=== PATIENT | male | born 1970 | race Caucasian/White ===

== ENCOUNTER 2019-08-21 10:41 | Emergency (ER) | payer BC ==
[~2019-08-21] VITALS: Ht 172.7 cm; Wt 102.1 kg
[~2019-08-21 10:41] MED LIST: ABILIFY5 MG; LISINOPRIL-HCT1 EACH PO; LISINOPRIL10 MG PO; LORTAB 10 MG-3473 ML PO; METOPROLOL TART25 MG PO; SIMVASTATIN40 MG PO
[2019-08-21] MEDS ORDERED: ASPIRIN81 MG PO (10:53)
[2019-08-21] MEDS ORDERED: NEURONTIN300 MG PO (10:53)
[2019-08-21] MEDS ORDERED: LIPITOR10 MG PO (10:53)
[2019-08-21] MEDS ORDERED: NORVASC5 MG PO (12:32)
--- NOTE | 2019-08-21 19:47 | EKG ---
[facility] [address] [facility] [place], [place] [address] Signed Sinus bradycardia Otherwise normal ECG Confirmed by MANDY SPEARS DO ([id number]) on 08/21/2019 7:47:24 PM Electronically Signed By: MANDY SPEARS DO 08/21/19 1947 PATIENT NAME: SIMIN GLEZ Electrocardiogram DATE OF : 68 PHYSICIAN: MANDY SPEARS DO REPORT #: [id number] REPORT IS CONFIDENTIAL AND NOT TO BE RELEASED WITHOUT AUTHORIZATION
== END 2019-08-21 12:48 | disposition home or self-care (01) ==
LOC: ED 10:41
DX: I10 Essential (primary) hypertension (principal); Z86.73 Personal history of transient ischemic attack (TIA), and cerebral infarction without residual deficits; Z88.8 Allergy status to other drugs, medicaments and biological substances; Z79.899 Other long term (current) drug therapy; Z79.82 Long term (current) use of aspirin
CPT/HCPCS: 71045; 93005; 93010; 99285-25

== ENCOUNTER 2021-08-11 06:16 | Emergency (ER) | payer BC, OTHER ==
[~2021-08-11] VITALS: Ht 172.7 cm; Wt 102.1 kg
[~2021-08-11 06:16] MED LIST changes: +ASPIRIN81 MG PO; +LIPITOR10 MG PO; +NEURONTIN300 MG PO; +NORVASC5 MG PO
[2021-08-11] MEDS ORDERED: METOPROLOL SUCC50 MG PO (06:40)
--- NOTE | 2021-08-13 16:27 | EKG ---
[facility] [address] [facility] [place], [place] [address] Signed Normal sinus rhythm Normal ECG When compared with ECG of 21-AUG-2019 10:45, No significant change was found Confirmed by MANDY SPEARS DO ([id number]) on 08/13/2021 4:27:24 PM Electronically Signed By: MANDY SPEARS DO 08/13/21 1627 PATIENT NAME: AMARISJAIMEMARKJOSEPH DIAZ Electrocardiogram DATE OF : 68 PHYSICIAN: MANDY SPEARS DO REPORT #: [id number] REPORT IS CONFIDENTIAL AND NOT TO BE RELEASED WITHOUT AUTHORIZATION
== END 2021-08-11 11:15 | disposition home or self-care (01) ==
LOC: ED 06:16
DX: R07.9 Chest pain, unspecified (principal); R20.2 Paresthesia of skin; I10 Essential (primary) hypertension; R11.0 Nausea; Z88.8 Allergy status to other drugs, medicaments and biological substances; Z79.899 Other long term (current) drug therapy; Z79.82 Long term (current) use of aspirin
CPT/HCPCS: 70450; 70496; 70498; 70551; 71045; 71275; 74174; 80053; 83735; 84484; 85025; 85379; 93005; 93010; 99285-25; Q9967

== ENCOUNTER 2021-09-06 17:01 | Emergency (ER) | payer BC, OTHER ==
[~2021-09-06] VITALS: Ht 172.7 cm; Wt 102.1 kg
[~2021-09-06 17:01] MED LIST changes: +METOPROLOL SUCC50 MG PO
--- OUTSIDE RECORDS SUMMARY | 2021-09-06 17:08 | XMS ---
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 Andres has no Care Guidelines for this patient. Yoel VISIT COUNT (12 MO.) 2 [facility] [place] TOTAL 2 NOTE: Visits indicate total known visits. ED/C VISIT TRACKING (12 MO.) 09/06/2021 17:[address] [facility] [place] TYPE: Emergency COMPLAINT: - POSS STROKE 08/11/2021 06:16 [facility] [place] TYPE: Emergency COMPLAINT: - CHEST PAIN DIAGNOSES: - alf (current) use of aspirin - Essential (primary) hypertension - Chest pain, unspecified - Paresthesia of skin - Allergy status to other drugs, medicaments and biological substances - Other intermediate school teacher (current) drug therapy - Nausea INPATIENT VISIT TRACKING (12 MO.) No inpatient visits to display in this time frame [email or web address]
--- NOTE | 2021-09-07 18:52 | EKG ---
[facility] [address] [place] [address] Signed Normal sinus rhythm Left axis deviation Abnormal ECG When compared with ECG of 11-AUG-2021 06:21, No significant change was found Confirmed by JAMIE LIU MD ([id number]) on 09/07/2021 6:52:20 PM Electronically Signed By: JAMIE LIU MD 09/07/211851 PATIENT NAME: SIMIN GLEZ Electrocardiogram DATE OF : 68 PHYSICIAN: JAMIE LIU MD REPORT #: [id number] REPORT IS CONFIDENTIAL AND NOT TO BE RELEASED WITHOUT AUTHORIZATION
== END 2021-09-06 21:22 | disposition home or self-care (01) ==
LOC: ED 17:01
DX: U07.1 COVID-19 (principal); E86.0 Dehydration; E87.6 Hypokalemia; I10 Essential (primary) hypertension; Z86.73 Personal history of transient ischemic attack (TIA), and cerebral infarction without residual deficits; Z88.8 Allergy status to other drugs, medicaments and biological substances; Z79.899 Other long term (current) drug therapy; Z79.82 Long term (current) use of aspirin
CPT/HCPCS: 36415; 71045; 80053; 81001; 83605; 83690; 84484; 85025; 93005; 93010; 99284-25; C9803; J3480; J7030; J7040; U0003

== ENCOUNTER 2022-09-22 11:41 | Inpatient (IN) | payer BC, OTHER ==
[~2022-09-22] VITALS: Ht 172.7 cm; Wt 102.1 kg
[~2022-09-22 11:41] MED LIST changes: -NEURONTIN300 MG PO
--- NOTE | 2022-09-22 15:05 | EKG ---
[facility] [address] [place] [address] Signed Normal sinus rhythm Left axis deviation Abnormal ECG When compared with ECG of 06-SEP-2021 18:24, No significant change was found Confirmed by Robert Martinez MD () on 09/22/2022 3:04:52 PM Electronically Signed By: ROBERT MARTINEZ MD 09/22/22 1505 PATIENT NAME: SIMIN GLEZ Electrocardiogram DATE OF : 68 PHYSICIAN: ROBERT MARTINEZ MD REPORT #: [id number] REPORT IS CONFIDENTIAL AND NOT TO BE RELEASED WITHOUT AUTHORIZATION
[2022-09-22] MEDS ORDERED: HYDROCHLOROTHIA25 MG PO (16:52)
[2022-09-22] MEDS ORDERED: AMLODIPINE BESY10 MG PO (16:52)
[2022-09-22] MEDS ORDERED: LISINOPRIL30 MG PO (16:53)
[2022-09-22] MEDS ORDERED: METOPROLOL SUCC25 MG PO (16:53)
--- NOTE | 2022-09-22 18:15 | NUR ---
PATIENT LYING ON BED VISITING WITH FAMILY. VITALS AND I/O'S COMPLETED. CALL LIGHT WITHIN REACH.
--- NOTE | 2022-09-22 19:10 | NUR ---
SHIFT REPORT RECEIVED FROM QUEENIE JOHNSTON.
--- NOTE | 2022-09-22 19:18 | NUR ---
patient arrived to the floor approx 1620. Accompanied by his Khadar. Report received from FORESTRY AID TECHNICIAN. Oriented patient to bed/room/call system and ordered diet. Admission assessment completed. Offered tylenol (see emar) patient denied relief of pain behind right eye describes as stabbing after the tylenol but declined need for any additional pain medicaion. Patient tolerated 90% of dinner without nausea. Pt with a hx of GAMA- will bring in CPAP tonight. Advanced directive brought in by family- scanned in by credit charge authorizerPRESTON Pat. Patient states he would not accept blood products if they were offered due to his spritual preference of [employer]. Report provided to Marlyn JOHNSTON at approx 1915- patients parents are currently at the bedside.
--- NOTE | 2022-09-22 19:30 | NUR ---
PT RESTING IN BED, FAMILY MEMBERS AT BEDSIDE, VISITING, PT AWAKE AND ALERT TO PLACE AND SELF, FOLLOWS COMMANDS FOR PEDAL PUSHES AND COMPUTER PATTERNMAKER, SPEECH CLEAR, TAKING PO WATER WITHOUT SWALLOWING DIFFICULTIES.
--- NOTE | 2022-09-22 19:45 | NUR ---
TO ROOM, OTHER FAMILY MEMBERS GONE FOR THE NIGHT, PT ASSISTED UP TO BR TO VOID WITH 1 PERSON ASSIST, VOIDED YELLOW GRACIELA URINE 500 ML, SLIGHTLY UNSTEADY ON FEET, DENIES DIZZINESS, REMAINS WITH PT IN BR HE VOIDS, ASSISTED BACK TO BED, TELE #7 PLACED ON PT, SCDS PLACED ON PT PER ORDER,
--- NOTE | 2022-09-22 20:45 | NUR ---
TC TO RT TO REQUEST THAT PT'S PERSONAL CPAP MACHINE BE CHECKED.
--- NOTE | 2022-09-22 20:48 | NUR ---
TELE LEADS REPLACED, PRIMARY RN GENE NOW IN ROOM. CALL LIGHT IN REACH.
--- NOTE | 2022-09-22 21:00 | NUR ---
CPAP MACHINE CHECKED BY RT.
--- NOTE | 2022-09-22 22:05 | NUR ---
SL IN RIGHT WRIST WNL, FLUSHES WELL WITH NS, NO SIGNS OF INFILTRATION, WINDOW DRESSING IN PLACE.
--- NOTE | 2022-09-22 22:05 | NUR ---
PT ASLEEP, LAYING ON RIGHT SIDE, CPAP IN PLACE, AWAKEN, ASSESSMENT COMPLETED, VS DONE, I/O DONE, PT WITHOUT REQUEST, TELE ADJUSTED, FRESH WATER GIVEN, PT WITHOUT REQUEST, REMAINS AT BEDSIDE, SUPPORTIVE.
--- NOTE | 2022-09-22 23:35 | NUR ---
PT ASLEEP, LAYING ON LEFT SIDE, RESP EVEN AND REG, CPAP IN PLACE, WIFT AWAKE AND ON COUCH.
--- NOTE | 2022-09-23 01:10 | NUR ---
PT ASLEEP, LAYING ON SIDE, CONTINUES ON CPAP
--- NOTE | 2022-09-23 02:25 | NUR ---
PT HAS A SL IN RIGHT WRIST, DRESSING INTACT, SITE WNL.
--- NOTE | 2022-09-23 06:15 | NUR ---
PT ASLEEP, LAYING ON LEFT SIDE, CHEEKS ORLIN, PT AWAKENS TO NAME AND TOUCH, FOLLOWS COMMANDS, VS DONE, NEURO ASSESSMENT COMPLETED, REMAINS AT BEDSIDE PT STATES PAIN LESS BEHIND RIGHT EYE, SPEECH CLEAR, WITHOUT REQUEST, FRESH WATER GIVEN.
--- NOTE | 2022-09-23 08:14 | NUR ---
PT IN BED RESTING, EYES CLOSED. BREATHING UNLABORED. FAMILY IN ROOM TALKING ON PHONE. CALL LIGHT WITHIN REACH.
--- NOTE | 2022-09-23 09:22 | NUR ---
PATIENT SITTING UP IN BED, FINISHED UP WITH BREAKFAST. NO SWALLOWING ISSUES. UP TO BATHROOM, PATIENT REPORTS UNSTEADY ON FEET, HAVING TO HOLD ONTO MAS. DR. HERRERA IN ROOM ROUNDING. NEW ORDER FOR PAIN CONTROL. PATIENT RATES PAIN BEHIND RIGHT EYE 8/10 ON PAIN SCALE. ADMINISTERED TYELENOL PER OCT PRN. PLAN FOR PT EVALUATION.
--- NOTE | 2022-09-23 10:40 | NUR ---
PATIENT IN BED AFTER MEAL. VITALS AND I/O'S COMPLETED. FAMILY IN ROOM, CALL LIGHT WITHIN REACH.
--- NOTE | 2022-09-23 13:11 | NUR ---
PATIENT HAS MANY FAMILY AND FRIENDS IN ROOM. PATIENT CONVERSING WITH WELL. NO OTHER NEEDS AT THIS TIME. CALL LIGHT WITHIN REACH.
--- NOTE | 2022-09-23 13:59 | NUR ---
PATIENT LYING IN BED, SPOUSE BESIDE PT IN CHAIR. VITALS AND I/O'S COMPLETED. CALL LIGHT WITHIN REACH.
--- NOTE | 2022-09-23 14:16 | NUR ---
PATIENT REPORTING PAIN INCREASE STATING " IT FEELS LIKE SOMEONE IS SHOVING A PENCIL THROUGH MY EYEBALL" PATIENT NEURO ASSESSMENT UNCHANGED. RATES PAIN 10/10 INTERMITTENT. CALL TO HOSPITALIST TO REPORT CHANGE IN PAIN AND SYMPTOMS. NEW ORDER FOR STAT CT SCAN OF HEAD. UPDATED PATIENT ON POC.
--- NOTE | 2022-09-23 14:44 | NUR ---
PATIENT BACK FROM CT. APPEARS STEADY ON FEET WHEN TRANSFERING. PATIENT HAS [place] FAMILY VISITING IN ROOM. AT BEDSIDE. NO OTHER NEEEDS AT THIS TIME. CALL LIGHT WITHIN REACH. THIS NURSE WENT WITH PATIENT TO CT.
[2022-09-23] MEDS ORDERED: NEURONTIN300 MG PO (17:54)
--- NOTE | 2022-09-23 17:56 | NUR ---
medications reconciled using pharmacy records and interview with patient and
[2022-09-23] MEDS ORDERED: CO Q-10100 MG PO (18:03)
[2022-09-23] MEDS ORDERED: APPLE CIDER VI600 MG PO (18:03)
--- NOTE | 2022-09-23 18:09 | NUR ---
PATIENT LYING IN BED. VITALS AND I/O'S COMPLETED. SPOUSE IN ROOM. CALL LIGHT WITHIN REACH.
--- NOTE | 2022-09-23 18:34 | NUR ---
NIH STROKE ASSESSMENT DONE SCORE OF 4. PATIENT ALERT AND ORIENTED WITH SOME REPORTED FDC MEMORY LOSS. PATIENT HAD INCREASED INTERCRANIAL PAIN WITH SHARP PRESSURE AGAINST RIGHT EYE, STATES "HITS ME IN WAVES" CHANGE IN PAIN REPORTED TO HOSPITALIST, STAT CT SCAN DONE. NO ACUTE CHANGES WITH IMAGING. PATIENT WORKED WITH PHYSIAL THERAPY, WALKER ENCOURAGED WITH UNSTEADINESS. PATIENT REQUESTED STRONGER PAIN MEDICATION. NEW ORDER FOR PERCOCET 5/325 PO. HOSPITALIST REPORTED OKAY TO ADMINISTER PRN WITH CURRENT PRN TYLENOL ORDER. PLANS TO HAVE MRI AND ECHO TOMORROW. MRI SCREENING SHEET DONE AND IN CHART.
--- NOTE | 2022-09-23 19:07 | NUR ---
BEDSIDE REPORT RECEIVED FROM NIURKA JOHNSTON, PT AWAKE AND VISITING WITH , PLAN OF CARE FOR TONIGHT DISCUSSED, PT WITHOUT REQUEST AT THIS TIME.
--- NOTE | 2022-09-23 21:05 | NUR ---
SL RIGHT WRIST, FLUSHES WELL WITH NS, DRESSING WINDOW, INTACT, NO SIGNS OF INFILTRATION.
--- NOTE | 2022-09-23 21:05 | NUR ---
PT RESTING IN BED WITH LAYING NEXT TO HER, EYES CLOSED, AWAKENS EASILY, ALERT TO PLACE AND DAY, SPEECH CLEAR AND APPROPRIATE, NEURO CHECKS AND ASSESSMENT DONE, PT AND REQUESTING RN TO CALL MD TO SEE IF ADDITIONAL PAIN MED COULD BE ORDERED, THEY FEEL THAT PAIN MED NOT QUITE COVERING DISCOMFORT IN RIGHT EYE. PLAN TO CALL MD.
--- NOTE | 2022-09-23 21:20 | NUR ---
DR MARTINEZ CALLED AND UPDATED ON PT'S PAIN STATUS AND PT'S DESIRE TO HAVE ADDITIONAL MED TO HELP COVER DISCOMFORT IN RIGHT EYE, MD STATES HE WILL WRITE AN ORDER.
--- NOTE | 2022-09-23 21:35 | NUR ---
PT RESTING, DISCUSSED NEW ORDER FOR ADDITIONAL PAIN MED, PT DESIRES TO TAKE NOW, PT MEDICATED WITH 1 PERCOCET PER ORDER, FOR RIGHT EYE PAIN 02/11.
--- NOTE | 2022-09-23 23:34 | NUR ---
PT ASLEEP, LAYING ON LEFT SIDE, RESP EVEN AND REGULAR
--- NOTE | 2022-09-24 00:45 | NUR ---
PT ASLEEP, RESP REG AND EVEN.
--- NOTE | 2022-09-24 01:50 | NUR ---
PT ASLEEP, AWAKEN PER EARILIER REQUEST, SPEECH MUMBLED AT FIRST BUT CLEARS QUICKLY, REPORTS PAIN 7/10 RIGHT EYE, MEDICATED WITH 2 PEROCET TABLETS PER ORDER. PT DESIRES TO GET UP TO VOID. SCDS REMOVED, GAIT SLOW AND UNSTEADY, RN ASSIST, VOIDED 550 ML YELLOW URINE, BACK TO BED, SCDS REPLACED, PT PREFERS NOT TO WEAR HIS CPAP TONIGHT, FRESH WATER GIVEN.
--- NOTE | 2022-09-24 02:40 | NUR ---
PT ASLEEP, RESP EVEN AND REGULAR, LAYING ON SIDE, ASLEEP ON COUCH.
--- NOTE | 2022-09-24 06:00 | NUR ---
PT AWAKEN, ALERT, VS DONE, NOTED BP ELEVATED 105/108. PLAN TO RECHECK. PT APPROPRIATE, FOLLOWS COMMANDS, CAPACITOR TESTER EQUAL, SPEECH CLEAR. PT C/O PAIN RIGHT EAR AND NEVAREZ 8/10, MEDICATED WITH 2 PERCOCET. CONCERNED THAT PT HASN'T HAD BM IN THREE DAYS, REQUESTING STOOL SOFTENER, PLAN TO PASS ON TO DAY SHIFT TO F/U WITH DOCTOR.
--- NOTE | 2022-09-24 06:00 | NUR ---
SL INTACT RIGHT WRIST, FLUSHES WELL, DRESSING INTACT.
--- NOTE | 2022-09-24 06:15 | NUR ---
PT MEDICATED WITH TORADOL 15MG IV FOR PAIN, IV SITE INTACT, FLUSHES WELL, SITE INTACT.
--- NOTE | 2022-09-24 07:15 | NUR ---
BEDSIDE HANDOFF RERORT RECEIVED FORM LINE RUNNER RN. PT SLEEPING, LEFT UNDISTURBED, SITTING AT BEDSIDE.
--- NOTE | 2022-09-24 08:40 | NUR ---
Spoke with Wilmer and his , Don. This is pts second stoke, but both feel it is much different than his last. He states his entire body feels weak and he has difficulty walking. They live in a 1 story home with 2 steps. He states his teenagers will help him into the home. 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 He also uses a cpap from [employer]. He works for the [employer] and his works at [employer]. Per , walk with PT did not go well yesterday and they returned him to the room due to safety. Per pt his mom and dad live next door and will also be able to assist him. states concern about mother in law helping pt when he is unsteady on his feet. She is concerned they both may get hurt. Discussed if they would be interested in IP rehab at [facility] and both are in agreement. I will discuss with PT and Doc in the 929 meeting.
--- NOTE | 2022-09-24 08:45 | NUR ---
Saw Sury from PT when I left pts room. Discussed if pt would qualify for IP rehab and she states yes.
--- NOTE | 2022-09-24 09:30 | NUR ---
PT RESTING IN BED. PT WITH POOR APPETITE, DID NOT LIKE BREAKFAST, DECLINING ADDITIONAL BREAKFAST TO BE ORDERED. PT ON ROOM AIR, LUNG SOUNDS CLEAR, DENIES SOB. PT STATES PAIN MEDICATION WAS EFFECTIVE IN HEADAHCE PAIN, DECLINING NEED FOR PAIN MEDICATION AT THIS TIME. BOWEL TONES ACTIVE, HAS NOT HAD BM IN 3 DAYS, NIO FOR SENNA/DOCUSATE INITIATED. CMS INTACT, WITHOUT EDEMA, SCDS IN PLACE. DISCUSSED PLAN OF CARE FOR THE DAY, PT DENIES OTHER NEEDS AT THIS TIME. DR. HERRERA ROUNDED ON PT, MRI TO BE COMPLETED TODAY.
--- NOTE | 2022-09-24 10:00 | NUR ---
Discussed this pt in 929 meeting. Per PT and Hospitalist, both feel this would be appropriated. I will call Ana M at [facility] and ask about availability and fax a chart for review.
--- NOTE | 2022-09-24 11:07 | NUR ---
PT FLUSHED AND NAUSEATED WHEN GETTING TO SHOWER WITH LEI SELLER AN OT. WITH EMESIS. PT NOW RESTING IN BED. GIVEN 4 MG IV ZOFRAN. VSS, BP 161/109 (118), HR 68, 95% ON ROOM AIR, RR 20. TELEMETRY REVIEWED. DR. HERRERA UPDATED ON PT CONDITION.
--- NOTE | 2022-09-24 11:09 | NUR ---
OCCUPATIONAL THERAPY AND I WERE GETTING PATIENT READY TO TAKE A SHOWER. WRAPPED HIS IV AND HIS TELE. WHILE I WAS CHANGING PATIENT SHEETS. THE OCCUPATIONAL THERAPY SAID HE WASN'T FEELING WELL AND HE NEEDED TO LAY DOWN. HE SAID HE WAS FEELING HOT. THEN HE THROUGH UP. WHEN HE GOT BACK TO HIS BED I GOT HIM A COLD WASH CLOTH AND PUT IT ON HIS FORHEAD. NURSE DID HIS VITALS. WILL GO BACK IN AND HELP HIM WITH A BED BATH.
--- NOTE | 2022-09-24 11:22 | NUR ---
PT TO MRI.
--- NOTE | 2022-09-24 12:36 | NUR ---
DID PATIENT'S BED BATH. ALSO SHAMPOOED HIS HAIR AND COMBED IT. PUT NEW GOWN AND SOCKS ON. IN ROOM. AND ALSO HE HAS PEOPLE VISITING HIM.
--- NOTE | 2022-09-24 14:10 | NUR ---
PT RESTING IN BED, AT BEDSIDE. PT STATES HEADAHCE IS CONTINUING, JUST RECEIVED PAIN MEDICATION. NO ACUTE CHANGES.
--- NOTE | 2022-09-24 16:39 | NUR ---
PT RESTING IN BED. FAMILY AT BEDSIDE. PT STATES HEADACHE IS IMPROVING. PT DENIES NEEDS AT THIS TIME.
--- NOTE | 2022-09-24 19:15 | NUR ---
BEDSIDE REPORT RECEIVED PER LEILANI RN, PT RESTING IN BED, AT BEDSIDE, PT REQUESTING PAIN MED.
--- NOTE | 2022-09-24 19:20 | NUR ---
PT MEDICATED FOR PAIN PER MOISES VASQUEZ RN FOR RIGHT EYE PAIN AND NEVAREZ, PT GIVEN TORADOL AND PERCOCET PER ORDER.
--- NOTE | 2022-09-24 19:40 | NUR ---
SL PATENT IN RIGHT WRIST, SITE WNL, FLUSHES WELL.
--- NOTE | 2022-09-24 19:40 | NUR ---
PRIMARY RN COMPLETES pt ASSESSMENT. 1PA WITH FWW TO RESTROOM FOR VOID. pt GAIT UNSTEADY, REQUIRING INSTRUCTION FOR DIRECTION OF WALKER, HOLDING ONTO WALKER, NOT REACHING FOR TABLE, WALL. BACK IN BED. CPAP ON.
--- NOTE | 2022-09-24 19:40 | NUR ---
ASSESSMENT COMPLETED, RT IN TO CHECK CPAP, AT BEDSIDE.
--- NOTE | 2022-09-24 20:20 | NUR ---
PT ASLEEP, RESP EVEN AND REG.
--- NOTE | 2022-09-24 22:40 | NUR ---
PT ASLEEP, LAYING ON RIGHT SIDE, RR 24/MIN, CPAP IN PLACE, NOT IN ROOM AT THIS TIME.
--- NOTE | 2022-09-24 23:21 | NUR ---
PT AWAKE AND ALERT, INTO ROOM, PT AWAKE AND DESIRES TO GO TO BR, PT ASSISTED UP PER MAINTENANCE CHIEF AND AMBULATED TO BR WITH WALKER, AT SIDE, PT ALERT, SPEECH CLEAR AND APPROPRIATE, GAIT REMAINS UNSTEADY.
--- NOTE | 2022-09-24 23:30 | NUR ---
ANSWERED CALL LIGHT. 1 SBA TO BATHROOM AND BACK. PATIENT ASSISTED BY HIS . PATIENT USED WALKER. PATIENT IS BACK IN BED. SCD'S ON. ICE WATER FOR PROVIDED. DENIES FURTHER NEEDS AT THIS TIME.
--- NOTE | 2022-09-24 23:48 | NUR ---
ASSISTED pt TO FIND CPAP MASK. CPAP CONNECTED AND ON. pt WAS ABLE TO SIT UP INDEPENDENTLY AND FIND WATER AND DRINK INDEPENDENTLY. STATES THIS IS A BIG IMPROVEMENT. NO ADDITIONAL REQUESTS AT THIS TIME.
--- NOTE | 2022-09-25 00:18 | NUR ---
PT AWAKE, VISITING WITH , DISCUSSED CURRENT PAIN LEVEL AND PT DESIRES PERCOCET FOR RIGHT EYE PAIN AND NEVAREZ, MED PER ORDER, PT WITHOUT OTHER REQUEST, TALKING WITH .
--- NOTE | 2022-09-25 02:19 | NUR ---
pt RESTING IN BED WITH EYES CLOSED. RESPONDS TO VOICE. TELE LEADS REPLACED. pt ASSISTED TO PUT HOME CPAP ON. IN ROOM ON COUCH SLEEPING. CALL LIGHT IS WITHIN REACH.
--- NOTE | 2022-09-25 03:10 | NUR ---
PT ASLEEP, LAYING ON THE HIS SIDE, RESP EVEN AND REG, CPAP ON.
--- NOTE | 2022-09-25 05:23 | NUR ---
PT AWAKE, ALERT, LAB IN FOR AM BLOOD DRAW, PT MEDICATED FOR NEVAREZ AND RIGHT EYE PAIN WITH 2 PERCOCET PER REQUEST, PT ASSISTED UP TO BR TO VOID, NURSE ASSIST WITH PT USING WALKER, PT HAVING DIFFICULTY WITH LIMITED LEFT VISUAL FIELD, GUIDENCE GIVEN TO MANUVER TO BR AND BACK TO BED, PT BACK TO BED, SCDS REPLACED, AT BEDSIDE. PT RESTING.
--- NOTE | 2022-09-25 05:23 | NUR ---
SL INTACT RIGHT WRIST
--- NOTE | 2022-09-25 07:10 | NUR ---
HANDOFF REPORT RECEIVED FROM CENTRAL STERILIZATION TECHNICIAN RN.
--- NOTE | 2022-09-25 08:05 | NUR ---
Updated PT, OT, Progress note, and consult from [place] stroke consult faxed to Ana M at [facility].
--- NOTE | 2022-09-25 08:55 | NUR ---
PT RESTING IN BED. PT WITH PAIN 7/10 TO HEAD AND EYE, GIVEN TORADOL. PT ON ROOM AIR, LUNG SOUNDS CLEAR, DENIES SOB. BOWEL TONES ACTIVE, DENIES NAUSEA, SMALL APPETITE BUT STATES THE FOOD IS NOT APPETIZING. PT WITH LEFT SIDE INATTENTION, REQUIRES CUEING FOR. STRENGTH EQUAL BILATERALLY, WITHOUT EDEMA. DISCUSSED PLAN OF CARE FOR THE DAY. PT DENIES OTHER NEEDS AT THIS THIS TIME.
--- NOTE | 2022-09-25 09:10 | NUR ---
Received a call from Ana M at [facility] she is requesting updated notes and a ST eval. Let her know I have faxed the updated notes this am and I will request orders for ST leighal. She states she will give everything to their Financial Internship to review today. They will have a bed open tomorrow.
--- NOTE | 2022-09-25 09:34 | NUR ---
IN PT ROOM TO COMPLERE IS AND OS. PT DECLINED SHOWER. PT DECLINED RESTROOM NEEDS. NO FURTHER NEEDS AT THIS TIME. CALL LIGHT WITHIN REACH
--- NOTE | 2022-09-25 10:55 | NUR ---
pt completed with pGladistGladis and walking in the ordonez. p.t. called for rn. pt hypertenisve and nauseated. bp 151/100, reassesed 163/108, hr 62. pt complaint of headache about the same as earlier.
--- NOTE | 2022-09-25 11:14 | NUR ---
CALL TO [facility] AND LEFT A NOTE THAT PATIENT NEEDS ST EVALUATION.
--- NOTE | 2022-09-25 12:45 | NUR ---
PT COMPLAINT OF RIGHT ARM DISCOMFORT WITH IV POTASSIUM INFUSION, RATE DECREASED TO 75ML/HR, PT INSTRUCTED TO CALL IF DISCOMFORT CONTINUES.
--- NOTE | 2022-09-25 14:15 | NUR ---
Received call from Ana M sandoval [facility]. She asks I review insurance as the face sheet I sent is not the correct insurance. Reviewed I show Jr and ROCA[employer]. Her face sheet shows [employer]. I faxed her the corrected face sheet, PT note for this afternoon, and the ST note.
--- NOTE | 2022-09-25 15:39 | NUR ---
PT ASSISTED TO BATHROOM, VOIDED. PT GIVEN HYDROCHLOROTHIAZIDE AND GABAPENTIN PER ORDER. PT NOW RESTING IN BED. NO ACUTE CHANGES.
--- NOTE | 2022-09-25 18:29 | NUR ---
PT RESTING IN BED. PT COMPLAINT OF PAIN 8/10 TO FRONT OF HEAD, REUQESTING PAIN MEDICATION. GIVEN PERCOCET 2 TABS AND IV TORADOL. IV POTASSIUM INFUSION CONTINUES. PT DENIES OTHER NEEDS AT THIS TIME.
--- NOTE | 2022-09-25 19:52 | NUR ---
RECEIVED REPORT FROM DAY SHIFT RN. PATIENT IS RESTING IN BED. FAMILY AT THE BEDSIDE. NO NEEDS NOTED. CALL LIGHT IN REACH.
--- NOTE | 2022-09-25 20:50 | NUR ---
IN ROOM WITH PRIMARY RN TO COLLECT VS AND I&O'S, URINAL EMPTIED AND FRESH ICE WATER PROVIDED. PRIMARY RN OTIS REMAINS IN ROOM FOR pt CARES, CALL LIGHT IN REACH AND IN ROOM.
--- NOTE | 2022-09-25 21:00 | NUR ---
PATIENT ASSESMENT COMPLETED. PATIENT HAS LEFT SIDED NEGLECT AND LEFT SIDED VISUAL FIELD DISTORTION WHICH HAS UNCHANGED SINCE ADMIT. VITALS TAKEN AND RECORDED. INTAKE AND OUTPUT RECORDED. PM MEDS GIVEN PER ORDER. PATIENT REPORTS HEADACHE, PRN MED PER ORDER. PATIENTS IV FLUSHED AND SL PER ORDER. PATIENT DENIES ANY FURTHER NEEDS. PATIENT REPORTS NAUSEA HAS SUBSIDED. PRESENT IN THE ROOM.
--- NOTE | 2022-09-25 22:03 | NUR ---
PATIENT REPORTS NAUSEA, PRN NAUSEA MEDICATION REPORTED. PATIENT DENIES ANY FURTHER NEEDS. CALL LIGHT IN REACH. FAMILY PRESENT IN ROOM.
--- NOTE | 2022-09-26 00:15 | NUR ---
PATIENT IS RESTING IN BED WITH EYES CLSOED, RR 19. PATIENT IS WEARING HOME CPAP. CALL LIGHT IN REACH.
--- NOTE | 2022-09-26 02:18 | NUR ---
PATIENT IS RESTING IN BED WITH EYES CLOSED, RR 16. CALL LIGHT IN REACH.
--- NOTE | 2022-09-26 04:09 | NUR ---
PATIENT IS RESTING IN BED WITH EYES CLOSED. PATIENT IS ON TELE #9 AND HR IS 58. CALL LIGHT IN REACH.
--- NOTE | 2022-09-26 04:32 | NUR ---
TELE BATTERY REPLACED, VSS AND I&O'S CHARTED. FRESH WATER PROVIDED. NO ADDITIONAL NEEDS OR CONCERNS VERBALIZED, RESTING QUIETLY ON SOFA. CALL LIGHT IN REACH.
--- NOTE | 2022-09-26 06:18 | NUR ---
PATIENT IS RESTING IN BED. LAB IN ROOM. PATIENT DENIES ANY NEEDS. CALL LIGHT IN REACH.
--- NOTE | 2022-09-26 08:00 | NUR ---
REPORT RECEIVED FROM NIGHT RN AND PT CARE RESUMED. PT IS ALERT AND ORIENTED. ASSESSMENT COMPLETED. LEFT VISUAL DEFICITS NOTED AND COORDINATION DIFFICULTY WHEN PICKING UP OBJECTS. HE C/O 8/10 PAIN FROM HEADACHE AND ADMIN PRN MED. PT. STATES HE HAS ELIMINATION PROBLEMS AT HOME AND HAS A BM EVERY 3-5 DAYS. AT BEDSIDE. DISCUSSED SHOWERING, MEDS AND AMBULATION. LEFT RESTING WITH CALL LIGHT IN REACH.
--- NOTE | 2022-09-26 11:30 | NUR ---
Called and left a message for Ana M at [facility], unable to contact. Asked if they had received auth and what day they could accept this pt.
--- NOTE | 2022-09-26 12:45 | NUR ---
PT. C/O INTERMITTENT HEADACHE THAT IS STABBING SINCE BEING ADMITTED. ADMIN PRN MED. DENIES FURTHER NEEDS. EATING LUNCH AND AT BEDSDE.
--- NOTE | 2022-09-26 14:01 | NUR ---
PT. RESTING WITH EYES CLOSED. AT BEDSIDE.
--- NOTE | 2022-09-26 14:51 | NUR ---
PT. SALINE LOCKED FOR SHOWER
--- NOTE | 2022-09-26 15:00 | NUR ---
Received a call from Ana M at [facility]. She is unable to contact pts insurance. Asks if I can send her copies of insurance cards. Copied cards from and faxed to Ana M. Called and spoke with Ting in admitting and they have also had issues as they were originally given the wrong insurance name by the pt, then they called the railroad and they also gave them the insurance for the employees family. They did finally get through to [employer] and speak with Marco ford. after waiting 3 hrs.
--- NOTE | 2022-09-26 18:59 | NUR ---
PATIENT GIVEN TYLENOL FOR 9/10 HEADACHE.
--- NOTE | 2022-09-26 19:20 | NUR ---
SHIFT REPORT RECEIVED FROM DAYSHIFT RN ANASTASIA AT BEDSIDE, pt RESTING QUIETLY IN BED, ON RA. RR EVEN AND UNLABORED. NO NEEDS OR CONCERNS VERBALIZED, CALL LIGHT IN REACH AND BOARD UPDATED.
--- NOTE | 2022-09-26 22:15 | NUR ---
ASSESSMENT COMPLETE, pt DROWSY BUT AWAKENS TO VOICE. VSS, pt ON RA. pt DENEIS PAIN AND NAUSEA, REPORTS BASELINE NUMBNESS AND TINGLING TO BLE, CHRONIC PER pt. pt RECENTLY MEDICATED WITH EVENING MEDS BY PRESTON LIMON. IV SITE WNL, SALINE LOCKED. pt REPORTS NEED TO VOID, pt UP SBA WITH FWW TO VOID. PRESTON LIMON IN ROOM TO ASSIST pt BACK TO BED.
--- NOTE | 2022-09-26 22:30 | NUR ---
ASSESSMENT COMPLETE pt A/O TO EVERYTHING BUT DATE, ORIENTED EASILY. OUT OF ROOM, BED ALAMR ON FOR SAFETY ASSISTS WITH AMBULATION PRN. pt SBA WITH FWW, VIJAYAS. SCHEDULED MEDS GIVEN-SEE EMAR. 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 NO ADDITIONAL NEEDS OR CONCERNS VERBALIZED, CALL LIGHT IN REACH.
--- NOTE | 2022-09-27 00:17 | NUR ---
ROUNDED ON pt, TO RN STATION TO ASK TOILET HAT BE EMPTIED, REQUEST PROVIDED. NO ADDITIONAL NEEDS, pt RESTING QUIETLY IN BED WITH HOME CPAP MACHINE IN PLACE. pt AND DENIES ADDITIONAL NEEDS OR CONCERNS. CALL LIGHT IN REACH.
--- NOTE | 2022-09-27 01:18 | NUR ---
pt REMAINS RESTING IN BED AND ON HOME CPAP MACHINE, RR EVEN AND UNLABORED, NO DISTRESS NOTED. ALSO REMAINS IN ROOM, CALL LIGHT IN REACH.
--- NOTE | 2022-09-27 02:43 | NUR ---
pt RESTING IN BED WITH EYES CLOSED, ON HOME CPAP MACHINE. RR EVEN AND UNLABORED, NO DISTRESS NOTED. CALL LIGHT IN REACH, REMAINS IN ROOM AND SLEEPING ON COUCH.
--- NOTE | 2022-09-27 04:38 | NUR ---
pt RESTING IN BED WITH EYES CLOSED, ON HOME CPAP MACHINE. NO DISTRESS NOTED. CALL LIGHT IN REACH.
--- NOTE | 2022-09-27 05:25 | NUR ---
assessment complete, PT reports 8/10 pain r/t headache, prn tylenol provided-see emar. pt denies nausea. pupils round and equal and reactive to light. equal e d tech strength to ble and bue when prompted, denies numbness and tingling. no blurry vision, but vision field remains limited on left side compared to right side. no acute changes, call light in reach and fresh water provided.
--- NOTE | 2022-09-27 06:19 | NUR ---
pt HAD A GOOD NIGHT OVERALL, SLEPT WELL PER pt. PAIN R/T HEADACHE CONTROLLED BY PRN TYLENOL. pt A/O BUT CAN BE FORGETFUL, AT BEDSIDE AND ATTENTIVE W/ CARES. TOLERATING REGULAR DIET, NO NAUSEA REPORTED. BOWEL TONES ACTIVE, ON BOWEL MED SCHEDULE. VOIDING QS.
--- NOTE | 2022-09-27 07:05 | NUR ---
pt resting in bed. telemetry battery replaced. pt assisted up to bathroom sba w fww. pt in bathroom. linens changed. ice water provided, ice provided to pt. no needs. call light within reach
--- NOTE | 2022-09-27 07:45 | NUR ---
REPORT RECEIVED FROM NIGHT RN AND PT. CARE RESUMED. PT. IS ALERT AND ORIENTED TO ALL BUT DATE. HE C/O CONTINUOUS HEACHACHE SINCE CVA. PRN TRANSIT WORKER EARLIER. LIGHTS DIMMED AND ASSISTED WITH REPOSITIONING. ASSESSMENT COMPLETED AND MEDS ADMIN. NO NEW NEURO DEFICITS NOTED. LEFT RESTING WITH AT BEDSIDE AND CALL LIGHT IN REACH.
--- NOTE | 2022-09-27 09:15 | NUR ---
In and spoke with pt and . UPdated IP is awaiting auth from insurance. No change in plan for CM at this time.
--- NOTE | 2022-09-27 10:46 | NUR ---
PT. C/O TINGLING IN RIGHT HAND INTERMITTENTLY. NEURO ASSESSMENT COMPLETED AND NO NEW DEFICITS NOTED. WILL CONTINUE TO MONITOR.
--- NOTE | 2022-09-27 15:07 | NUR ---
in room for med pass and assessment, in room, call light in reach. prn pain meds given for headache.
--- NOTE | 2022-09-27 17:58 | NUR ---
ROUNDING ON PT. HE IS FINISHING DINNER. REPORTS IMPROVEMENT IN HEADACHE PAIN WITH ICE PACK. DISCUSSED ATTEMPTING TO HAVE BM AFTER DINNER. WILL CONTINUE TO MONITOR.
--- NOTE | 2022-09-27 19:20 | NUR ---
REPORT RECEIVED FROM PRESTON OCONNOR. PT LAYING IN BED WATCHING TV. AT BEDSIDE. PT REPORTING HEADACH. ICE PACK TO BACK OF NECK. PT REPORTS NO BM AT THIS TIME. PT REQUESTING TO AMBULATE WITH . PT AMBULATES BAEZ WITH FWW WITH . NO OTHER NEEDS REPORTED AT THIS TIME.
--- NOTE | 2022-09-27 21:20 | NUR ---
IN TO ADMINISTER MEDICATIONS, SEE MAR. PT LAYING IN BED AND RESPONDS WHEN ADDRESSED. PT TAKES PO MEDICATIONS WITH NO ISSUES. ASSESSMENT COMPLETE. PT REPORTING PAIN 8/10 HEADACHE. PRN PAIN MEDICATION ADMINISTERED, SEE MAR. LUNG SOUNDS CLEAR. BOWEL TONES ACTIVE. PT A&O TO SELF, PLACE, MONTH AND YEAR. DIRECTOR NICU STRENGTH EQUIL IN BOTH HANDS. LEFT ARM DRIFT NOTED WHEN PT HOLDING ARMS OUT. WATER PROVIDED. PT DENIES ANY OTHER NEEDS AT THIS TIME. CALL LIGHT IN REACH. IN ROOM.
--- NOTE | 2022-09-27 22:50 | NUR ---
IN TO ROUND ON PT. PT LAYING IN BED WITH EYES CLOSED. RR EVEN AND UNLABORED. PT HAS CPAP ON. AT BEDSIDE. REPORTS NO NEEDS AT THIS TIME. NO NEEDS IDENTIFIED FOR PT AT THIS TIME. CALL LIGHT IN REACH.
--- NOTE | 2022-09-28 00:10 | NUR ---
IN TO ROUND ON PT. PT LAYING ON RIGHT SIDE. RR EVEN AND UNLABORED. GETTING UP TO GO TO COUCH. DENIES ANY NEEDS AT THIS TIME. NO NEEDS IDENTIFIED AT THIS TIME FOR PT. CPAP ON PT. CALL LIGHT IN REACH.
--- NOTE | 2022-09-28 01:28 | NUR ---
IN TO ROUND ON PT. PT LAYING ON LEFT SIDE WITH CPAP ON. EYES CLOSED. RR EVEN AND UNLABORED. NO NEEDS IDENTIFIED AT THIS TIME. CALL LIGHT IN REACH. ON COUCH.
--- NOTE | 2022-09-28 02:14 | NUR ---
IN TO ROUND ON PT. PT LAYING ON LEFT SIDE WITH EYES CLOSED. RR EVEN AND UNLABORED. CPAP ON. NO NEEDS IDENTIFIED AT THIS TIME. CALL LIGHT IN REACH. ON COUCH.
--- NOTE | 2022-09-28 03:33 | NUR ---
IN TO ROUND ON PT. PT LAYING IN BED ON BACK WITH EYES CLOSED. RR EVEN AND UNLABORED. CPAP ON. NO NEEDS IDENTIFIED AT THIS TIME. CALL LIGHT IN REACH. ON COUCH.
--- NOTE | 2022-09-28 05:08 | NUR ---
IN TO ROUND ON PT. PT LAYING IN BED WITH EYES CLOSED. RR EVEN AND UNLABORED. PT AWAKENS WHEN ADDRESSED. VITALS AND I&Os COMPLETE. ASSESSMENT COMPLETE. LUNG SOUNDS CLEAR. BOWEL TONES ACTIVE. PT REPORTING HEADACHE PAIN 6/10 PRN TYLENOL ADMINISTERED AND ICE PACK PROVIDED. PT A&O TO SELF, DATE, MONTH, YEAR AND PLACE. EQUIL PUBLIC HEALTH REGISTRAR STRENGTH NOTED WITH HANDS SQUEEZING THIS RNs FINGERS. NO ARM DRIFT NOTED WHITH HOLDING BILATERAL ARMS OUT. LEFT SIDE PERIPHERAL DEFICIT NOTED. FRESH ICE WATER PROVIDED. PRUNE JUICE PROVIDED. PT DENIES ANY OTHER NEEDS AT THIS TIME. CALL LIGHT IN REACH. ON COUCH.
--- NOTE | 2022-09-28 06:46 | NUR ---
PT AMBULATING BAEZ WITH FWW AND .
--- NOTE | 2022-09-28 07:30 | NUR ---
REPORT RECEIVED FROM NIGHT RN AND PT CARE RESUMED. PT. IS DROWSY BUT AWAKENS EASILY TO VOICE. AT BEDSIDE.
--- NOTE | 2022-09-28 07:30 | NUR ---
report received. pt in bed. opens eyes when entering room. oriented and denies needs at this time. at bedside. call light in reach.
--- NOTE | 2022-09-28 08:14 | NUR ---
LEFT MESSAGE FOR MARTHA AT [facility] IN REHAB TO CHECK ON REFERRAL STATUS.
--- NOTE | 2022-09-28 09:44 | NUR ---
MED PASS COMPLETED. PT WAKING UP FOR BREAKFAST. IS GETTING OUTSIDE FOOD. PAIN INPROVIDED AFTER TYLENOL TO 5/10. PATIENT DENIES FURTHER NEEDS.
--- NOTE | 2022-09-28 11:00 | NUR ---
PT. EATING IN THE CHAIR. HE DENIES NEEDS AT THIS TIME.
--- NOTE | 2022-09-28 11:00 | NUR ---
CHART UPDATES FAXED TO MARTHA AT [facility] IN REHAB.
--- NOTE | 2022-09-28 11:35 | NUR ---
SPOKE WITH MARTHA AT [facility] IN REHAB, NO AUTH RECVDED AT THIS TIME. MARTHA STATES SHE HAS ATTEMPTED TO CONTACT THE INSURANCE COMPANY SEVERAL TIMES WITH NO SUCCESS. MARTHA STATES SHE WILL TRY AGAIN AFTER LUNCH.
--- NOTE | 2022-09-28 11:54 | NUR ---
UPDATE GIVEN TO ANASTASIA CHAMBERS RN, PATIENT AND PATIENTS . PATIENT WOULD LIKE TO CONTACT THE INSURANCE TO ASSIST IN THE PROCESS. COPY OF CARDS AND NUMBERS GIVEN TO PATIENT . ADVISED I WILL UPDATE THEM WITH ANY INFORMATION SOPHIE.
--- NOTE | 2022-09-28 13:53 | NUR ---
MULTIPLE CALLS PLACED OVER THE LAST FEW HOURS BY THIS RN AND PATIENT . PATIENT WAS ABLE TO REACH A REPERASENTATIVE AT [facility] WHO NOTED THAT THEY HAD NOT RECVD A REFERRAL FOR INPATIENT REHAB AT THIS TIME. CALL PLACED TO MARTHA AT [facility] IN [facility]HAB WHO STATES SHE IS STILL HAVING A DIFFICULT TIME CONNECTING THE THE APPROPRIATE PRE CERT LINE THE SYSTEM AND REPERESENTATIVE CANNOT VERIFY THE MEMBERS ID NUMBER. CONTACT NUMBER OBTAINED FROM PATIENTS AND CONFIRMATION OF CURRENT INSURANCE CARD COMPLETED AND FAXED TO MARTHA. MARTHA WILL CONTINUE TO ATTEMPT TO CONTACT INSURANCE SPOKE WITH DR. MONTES, SHE REQUEST REFERRAL TO [facility] BE MADE AT THIS TIME. SPOKE WITH PATIENT AND HIS BRADY WHO ARE AGREEABLE TO THIS PLAN. CHART FAXED TO [facility] [phone]. LEFT MESSAGE FOR CLINICAL EDITOR REGARDING BED AVAILABILITY.
--- NOTE | 2022-09-28 14:08 | NUR ---
PATIENT IN BED AFTER MEAL. VITALS AND I/O'S COMPLETED. SPOUSE IN ROOM. CALL LIGHT WITHIN REACH.
--- NOTE | 2022-09-28 14:20 | NUR ---
PT. USED CALL LIGHT APPROPRIATELY TO REPORT SUDDEN ONSET CHEST PAIN RADIATING TO LEFT SHOULDER. VITALS STABLE. PT. ALSO C/O SEVERE LEFT SIDE HEADACHE. MD UPDATED AND EKG AND CT ORDERED.
--- NOTE | 2022-09-28 17:51 | NUR ---
PT. EATING DINNER WITH AT BEDSIDE. DENIES NEEDS AT THIS TIME.
--- NOTE | 2022-09-28 18:51 | NUR ---
PT. AMBULATING SEVERAL LAPS AROUND THE UNIT WITH AND FWW. TOLERATING WELL.
--- NOTE | 2022-09-28 19:05 | NUR ---
REPORT RECEIVED FROM PRESTON OCONNOR. PT SITTING UP IN BED RUBBING 'S FEET. PT REPORTS NO NEEDS AT THIS TIME. CALL LIGHT IN REACH. AT BEDSIDE REPORTS NO NEEDS.
--- NOTE | 2022-09-28 20:06 | NUR ---
IN TO ADMINISTER MEDICATIONS, SEE MAR. PT SITTING UP IN BED WATCHING TV. AT BEDSIDE. PT TAKES PO MEDICATIONS WITH NO ISSUES. PT REPORTING HEADACHE PAIN 03/14. PRN PAIN MEDICATION ADMINISTERED, SEE OCT. VITALS AND I&Os COMPLETE. ASSESSMENT COMPLETE. LUNG SOUNDS CLEAR. BOWEL TONES ACTIVE. EQUAL CLINICAL DOCUMENTATION NURSE STRENGTH NOTED WITH BOTH HANDS WHEN PT SQUEEZES THIS RNs FINGERS. SLIGHT LEFT ARM DRIFT NOTED WHEN PT HOLDS BOTH ARMS OUT IN FRONT OF HIM. LEFT PERIPHERIAL VISUAL DEFICIT NOTED. PT DENIES ANY OTHER NEEDS AT THIS TIME. CALL LIGHT IN REACH. DENEIS ANY OTHER NEEDS AT THIS TIME.
--- NOTE | 2022-09-28 21:01 | NUR ---
IN TO ROUND ON PT. PT SITTING UP IN BED WITH AT BEDSIDE WATCHING TV. PT REFUSES SCDs AT THIS TIME. FRESH WATER PROVIDED. PT REPORTS NO OTHER NEEDS AT THIS TIME. CALL LIGHT IN REACH. REPORTS NO OTHER NEEDS AT THIS TIME.
--- NOTE | 2022-09-28 22:07 | NUR ---
IN TO ROUND ON PT. PT LAYING IN BED AND REPORTING HEADACHE PAIN 03/14. PRN TYLENOL ADMINISTERED, SEE MAR. AT BEDSIDE. PT REQUESTING ICE WATER, ICE WATER PROVIDED. PT REPORTS NO OTHER NEEDS AT THIS TIME. CALL LIGHT IN REACH. REPORTS NO OTHER NEEDS AT THIS TIME.
--- NOTE | 2022-09-28 22:54 | NUR ---
IN TO ANSWER CALL LIGHT. PT REQUESTING ICE WATER. ICE WATER PROVIDED. PT LAYING IN BED WITH AT BEDSIDE. PT REPORTS NO OTHER NEEDS AT THIS TIME. CALL LIGHT IN REACH. REPORTS NO OTHER NEEDS AT THIS TIME.
--- NOTE | 2022-09-28 23:46 | NUR ---
PT RESTING IN BED WITH EYES CLOSED RR EVEN AND UNLABORED. IN BED WITH PT WITH EYES CLOSED. RR EVEN AND UNLABORED. NO NEEDS IDENTIFIED AT THIS TIME. CALL LIGHT IN REACH.
--- NOTE | 2022-09-29 00:22 | NUR ---
IN TO ROUND ON PT. PT LAYING IN BED WITH EYES CLOSED RR EVEN AND UNLABORED. LAYING IN BED WITH PT WITH EYES CLOSED. RR EVEN AND UNLABORED.
--- NOTE | 2022-09-29 02:09 | NUR ---
IN TO ROUND ON PT. PT LAYING IN BED ON LEFT SIDE WITH EYES CLOSED. RR EVEN AND UNLABORED. IN BED WITH PT WITH EYES CLOSED AND RR EVEN AND UNLABORED. NO NEEDS IDENTIFIED AT THIS TIME. CALL LIGHT IN REACH.
--- NOTE | 2022-09-29 05:38 | NUR ---
IN TO ROUND ON PT. LAB IN ROOM. PT REPORTING HEADACHE PAIN 03/14 REQUESTING PRN PAIN MEDICATION AND ICE PACK. PRN PAIN MEDICATION ADMINISTEREDM SEE OCT. ICE PACK PROVIDED. FRESH ICE WATER PROVIDED. VITALS AND I&Os COMPLETE. ASSESSMENT COMPLETE. LUNG SOUNDS CLEAR. BOWEL TONES ACTIVE. PT A&O TO SELF, PLACE, MONTH AND YEAR. EQUAL GRILL PREP COOK STRENGTH NOTED TO BILATERAL HANDS WHEN PT SQUEEZES THIS RNs FINGERS. PT REPORTS NO OTHER NEEDS AT THIS TIME. CALL LIGHT IN REACH. PT LAYING IN BED WITH . REPORTS NO NEEDS AT THIS TIME.
--- NOTE | 2022-09-29 08:30 | NUR ---
PATIENT AND WALKED TWO LAPS AROUND MED SURG. THIS MORNING.
--- NOTE | 2022-09-29 08:55 | NUR ---
Patient and spouse ambulating in hallway. Patient with steady gait, using walker.
--- NOTE | 2022-09-29 09:54 | NUR ---
MORNING ASSESSMENT COMPLETE. PT AWAKE IN BED, AT BEDSIDE. PT STATES HEADACHE PAIN IS TOLERABLE AT THIS TIME. SLIGHT LEFT SIDED WEAKNESS NOTED WITH HAND STEEL HANGER. SLOW TO REMEMBER DATE. PT DENIES FURTHER NEEDS AT THIS TIME. CALL LIGHT IN REACH.
--- NOTE | 2022-09-29 11:50 | NUR ---
PT WALKING UNIT WITH PHYSICAL THERAPY.
--- NOTE | 2022-09-29 19:00 | NUR ---
REPORT RECEIVED FROM PRESTON RECIO. PT LAYING IN BED VISITING WITH . NO NEEDS IDENTIFIED AT THIS TIME. CALL LIGHT IN REACH.
--- NOTE | 2022-09-29 21:41 | NUR ---
IN TO ADMINISTER MEDICAITONS, SEE MAR. PT TAKES PO MEDICATIONS WITH NO ISSUES. VITALS AND I&Os COMPLETE. ASSESSMENT COMPLETE. LUNG SOUNDS CLEAR. BOWEL TONES ACTIVE. PT REPORTING HEADACHE PAIN 11/12. PT DENIES PRN PAIN MEDICAITON WHEN OFFERED. NO ARM DRIFT NOTED WHEN PT HOLDS BOTH ARMS OUT IN FRONT OF HIM. PT A&O TO SELF, PLACE, MONTH, YEAR. LEFT PERIPHERIAL VISUAL DEFICIT NOTED. PT DENIES ANY OTHER NEEDS AT THIS TIME. CALL LIGHT IN REACH. IN ROOM DENIES ANY NEEDS AT THIS TIME.
--- NOTE | 2022-09-30 06:03 | NUR ---
IN TO ROUND ON PT. PT LAYING IN BED WITH EYES CLOSED. RR EVEN AND UNLABORED. PT AWAKENS WHEN ADDRESSED. PT REPORING HEADACHE PAIN 3/10 AND DENIED PRN PAIN MEDICATION WHEN OFFRED. VITALS AND I&Os COMPLETE. ASSESSMENT COMPLETE. LUNG SOUDS CLEAR. BOWEL TONES ACTIVE. LEFT PERIPHERIAL VISUAL DEFICIT NOTED. SLIGHT LEFT ARM DRIFT WHEN PT HOLDS BOTH ARMS OUT IN FRONT OF HIM. PT A&O TO SELF, PLACE, MONTH, YEAR. PT ABLE TO NAME CURRENT PRESIDENT WHEN ASKED. PT DENIES ANY OTHER NEEDS AT THIS TIME. CALL LIGHT IN REACH. IN ROOM AND DENIES ANY NEEDS.
--- NOTE | 2022-09-30 07:56 | NUR ---
PT RESTING QUIETLY IN BED, RESPIRATIONS EVEN AND UNLABORED. AT BEDSIDE. CALL LIGHT IN REACH.
--- NOTE | 2022-09-30 09:36 | NUR ---
PATIENT RESTING IN BED, EYES CLOSED. FAMILY IN ROOM. VITALS AND I/O'S COMPLETED. CALL LIGHT WITHIN REACH.
--- NOTE | 2022-09-30 10:10 | NUR ---
MORNING ASSESSMENT COMPLETE. PT LYING AWAKE IN BED. C/O 8/10 HEADACHE PAIN, PROVIDED PRN TYLENOL PER PT REQUEST AND A FRESH ICE PACK. PT ALERT AND ORIENTED. FORGETFULL AT TIMES. LEFT SIDED PERIPHERAL VISION DEFICIT. EQUAL EQUINE VET STRENGTH. PT DENIES FURTHER NEEDS AT THIS TIME. CALL LIGHT IN REACH. FAMILY AT BEDSIDE.
--- NOTE | 2022-09-30 11:21 | NUR ---
PT AMBULATING HALLWAY WITH PHYSICAL THERAPY AND FAMILY.
--- NOTE | 2022-09-30 12:08 | NUR ---
PT SITTING UP IN [employer] BOARD GAME WITH FAMILY. STATES HEADACHE PAIN IS IMPROVED TO 5/10, DENIES NEEDS FOR INTERVENTION AT THIS TIME. CALL LIGHT IN REACH.
--- NOTE | 2022-09-30 13:57 | NUR ---
PATIENT IN BED AFTER MEAL. VITALS AND I/O'S COMPLETED. SPOUSE IN ROOM. CALL LIGHT WITHIN REACH.
--- NOTE | 2022-09-30 15:40 | NUR ---
PT RESTING QUIETLY IN BED, AWAKENS EASILY. DENIES NEEDS AT THIS TIME. CALL LIGHT IN REACH. AT BEDSIDE.
--- NOTE | 2022-09-30 17:37 | NUR ---
PT AWAKE IN BED, FAMILY AT BEDSIDE. DENIES NEEDS AT THIS TIME. CALL LIGHT IN REACH.
--- NOTE | 2022-09-30 19:00 | NUR ---
REPORT RECEIVED FROM PRESTON RECIO. PT SITTING UP IN BED WATCHING TV. PT REPORTING HEADACHE PAIN 8/10 AND REQUESTING PAIN MEDICATION. WILL RETURN WITH PAIN MEDICATION.
--- NOTE | 2022-09-30 19:15 | NUR ---
IN TO ADMINISTER MEDICATION, SEE MAR. PT TAKES PO MEDICATION WITH NO ISSUES. PT TAKES CHEWABLE ASPIRIN WITH NO ISSUES. WILL RETURN TO SEE IF ASPIRIN ALSO HELPED WITH HEADACHE PAIN. PT DENIES ANY OTHER NEEDS AT THIS TIME. CALL LIGHT IN REACH. SON'S IN ROOM AT BEDSIDE.
--- NOTE | 2022-09-30 20:18 | NUR ---
IN TO ADMINISTER MEDICATIONS, SEE MAR. PT TAKES PO MEDICATIONS WITH NO ISSUES. VITALS AND I&Os COMPLETE. ASSESSMENT COMPLETE. PT A&O TO SELF, PLACE, YEAR, MONTH, DAY OF THE WEEK. NO ARM DRIFT NOTED WHEN PT HOLDS BOTH ARMS OUT IN FRONT OF HIM. PT REPORTING HEADACHE PAIN 7/10, PRN TYLENOL ADMINISTERED, SEE MAR. LUNG SOUNDS CLEAR. BOWEL TONES ACTIVE. WATER PROVIDED. PT REPORTS NO OTHER NEEDS AT THIS TIME. CALL LIGHT IN REACH.
--- NOTE | 2022-09-30 22:28 | NUR ---
IN TO ROUND ON PT. PT LAYING IN BED ON RIGHT SIDE WITH EYES CLOSED. RR EVEN AND UNLABORED. PT AWAKENS WHEN ADDRESSED. ENCOURAGED PT TO USE CPAP. PT REPORTING HEADACHE PAIN 03/14 AND REQUESTING PRN MEDICATION. PRN PAIN MEDICATION ADMINISTERED, SEE MAR. WATER PROVIDED. URINAL EMPTIED. PT PLACES CPAP ON SELF AND LAYS BACK DOWN IN BED. PT DENIES ANY OTHER NEEDS AT THIS TIME. CALL LIGHT IN REACH.
--- NOTE | 2022-10-01 05:34 | NUR ---
IN TO ROUND ON PT. PT LAYING IN BED WITH EYES CLOSED. RR EVEN AND UNLABORED. CPAP ON. PT AWAKENS WHEN ADDRESSED. VITALS AND I&Os COMPLETE. ASSESSMENT COMPLETE. PT REPORTING HEADACHE PAIN 4/10 AND DENIES ANY PRN PAIN MEDICATION WHEN OFFERED. LUNG SOUNDS CLEAR. BOWEL TONES ACTIVE. PT REQUESTING ICE PACK, ICE PACK PROVIDED. ICE WATER PROVIDED. PT DENIES ANY OTHER NEEDS AT THIS TIME. CALL LIGHT IN REACH. SON ON COUCH.
--- NOTE | 2022-10-01 07:30 | NUR ---
CONTACT MADE WITH PATIENTS INSURANCE CUSTOMER SERVICE. NEW MEMBER ID PROVIDED [id number], CALL [phone] FOR PRE CERTIFICATION. INFORMATION FAXED TO MARTHA AT [facility]. CALL PLACED TO MARTHA, SHE WILL START THE PRE AUTH PROCESS SOPHIE.
--- NOTE | 2022-10-01 07:37 | NUR ---
PT SLEEPING SOUNDLY AT TIME OF SHIFT REPORT, BREATHING EVEN AND UNLABORED. SON IS PRESENT ON THE COUCH. PT LEFT UNDISTURBED
--- NOTE | 2022-10-01 09:34 | NUR ---
PT CONTINUES AWAKE SITTING UP IN BED, MOTHER IS PRESENT IN THE ROOM. TOLERATES MORNING MEAL DENIES NEEDS OF. AGREES HIS HEAD STILL HURTS RATES THIS PAIN 01/12 ASKED AT WHAT POINT IT NEEDS TREATED HE STATES 8. HE SAYS ICE HAS BEEN EFFECTIVE FOR HIS HEADACHE WITH THE TYLENOL HE IS UPBEAT AND CHEERFUL.
--- NOTE | 2022-10-01 10:44 | NUR ---
PT WALKING IN THE BAEZ WORKING WITH P/T
--- NOTE | 2022-10-01 11:38 | NUR ---
WAS ASKED BY DISCHARGE TO TRY AND REACH INSURANCE REGARDING WHY INPATIENT REHAB IS NOT GETTING AUTH YET. WAS ABLE TO REACH [facility] [phone] AFTER A 56MIN HOLDING WAIT. SPOKE WITH ALICIA. CALL REF#[id number]. I WAS TOLD THEY HAVE NOT RECEIVED ANY REFERRALS OR REQUESTS FOR AUTH FOR INPATIENT REHAB. DISCUSSED THAT THE POLICY NUMBER WE WERE GIVEN AND THE REHAB WAS USING APPARENTLY WAS A WRONG ONE AND ASKED HIM ABOUT THE SECOND #[id number] AND HE STATED HE HAD BOTH NUMBERS LINKED TO THE ACCOUNT, BUT AGAIN STATES THERE IS NO REQUEST FOR [facility] REHAB. HE STATES TO HAVE FACILITY FAX TO [phone] WITH NO PATIENT INFO ON COVERSHEET AND THE WORDS "PLEASE SET UP REQUEST FOR REHAB". I CALLED [facility] AND LEFT MESSAGE FOR MARTHA WITH INSTRUCTIONS ON HER VOICEMAIL. UPDATED DISCHARGE PLANNING OFFICE WITH CALL AND EMAIL.
[2022-10-01] MEDS ORDERED: DIPHENHYDRAMINE25 M1 PO (13:32)
[2022-10-01] MEDS ORDERED: LIPITOR40 MG PO (13:32)
[2022-10-01] MEDS ORDERED: HEALTHYLAX17 GM PO (13:33)
[2022-10-01] MEDS ORDERED: TYLENOL325 MG PO (13:34)
[2022-10-01] MEDS ORDERED: OXYCODONE-ACET1 EAC1 PO (13:34)
[2022-10-01] MEDS ORDERED: STIMULANT LAXA1 EACH PO (13:34)
--- NOTE | 2022-10-01 13:47 | NUR ---
PT SITTING UP IN BED FAMILY PRESENT X2. OFFERED PT TO SHOWER HE REFUSES STATES HE SHOWERED YESTERDAY. REPORTS HE NORMALLY TAKES 900 MG OF GABAPENTIN TID INSTEAD OF 300 MG BEING GIVEN HERE. PHARMACY NOTIFIED ADJUSTMENT BEING MADE
--- NOTE | 2022-10-01 14:21 | NUR ---
PT ALERT, ORIENTED AND VISITING WITH HIS BRADY AND MOTHER AT . PT IS CHEERFUL, VERY COMPLIMENTARY OF CARE HE HAS RECEIVED AT [facility], EXCEPT THE FOOD HAS BEEN VERY SUB-PAR.THIS IS COMPARED TO PREVIOUS ADMISSIONS HERE. HAD GOOD VISIT, LEFT G.POST, BLESSING. NEAL BUTCHER IN TO UPDATE PT. WILL FOLLOW
--- NOTE | 2022-10-01 14:32 | NUR ---
SPOKE WITH MARTHA AT [facility] IN REHAB, SHE STATES SHE IS CURRENTLY ON HOLD WITH THE PATIENT INSURANCE AT THIS TIME. SOFIA STATES SHE HAS BEEN ABLE TO FIND OUT THE PATIENT HAS A 9,000 CO PAY, BUT HAS BEEN UNABLE TO SPEAK WITH SOMEONE TO START THE PRE AUTH AND ESTIMATE THE COST OF HIS STAY. DISCUSSED FURTHER DISCHARGE DISPOSITION WITH DR. MONTES SUCH ADMISSION TO [facility] FOR FURTHER REHAB. DR. MONTES FEELS PATIENT WOULD BENEFIT FROM [facility]. SHE REQUEST CALLS BE PLACED TO [place] FOR FURTHER REHAB OPTIONS. [facility] M[facility] [phone] FOR REFERRAL INFORMATION. REFERRAL FAXED TO [facility] AT [phone]. WILL AWAIT FURTHER UPDATE.
--- NOTE | 2022-10-01 15:00 | NUR ---
RECVD CALL BACK FROM [facility] REHAB. CHART FAXED TO [phone].
--- NOTE | 2022-10-01 17:27 | NUR ---
PT TOLERATES 100% OF EVENING MEAL, DAUGHTER IS PRESENT IN THE ROOM. NO CHANGE IN NEURO STATUS THIS SHIFT ANTICIPATES DC TO REHAB.
--- NOTE | 2022-10-01 18:38 | NUR ---
TYLENOL AND ICE PACK PROVIDED FOR C/O HEAD ACHE. CHECKING BACK LATER PT AGREES IT HELPED AND HE FEELS MUCH BETTER. REMAINS IN THE ROOM
--- NOTE | 2022-10-01 19:18 | NUR ---
REPORT RECEIVED FROM DAY SHIFT RN. PT LYING IN BED ALERT AND ORIENTED. FRESH WATER PROVIDED. FAMILY IN ROOM. NO FURTHER NEEDS. WHITE BOARD UPDATED. CALL LIGHT IN REACH.
--- NOTE | 2022-10-01 21:25 | NUR ---
EVENING ASSESSMENT COMPLETE. SCHEDULED MEDS ADMIN PER EMAR. PT REPORTS HEADACHE PAIN IS TOLERABLE AT THIS TIME. FRESH ICE PACK PROVIDED. NEURO CHECK COMPLETE. BILL POSTER INSTALLER STRENGTH EQUAL BILAT. PT REPORTS LEFT SIDE PERIPHERAL VISION DEFICIT. VS AND I&O COMPLETE. CPAP FILLED WITH STERILE WATER. AT BEDSIDE. PT DENIES QUESTIONS OR CONCERNS. CALL LIGHT IN REACH.
--- NOTE | 2022-10-01 23:07 | NUR ---
TO NURSES STATION TO LET RN KNOW SHE WAS LEAVING. PT LYING IN BED ON LEFT SIDE WITH EYES CLOSED. RESPIRATIONS EVEN. CPAP OFF. BED ALARM FOR SAFETY.
--- NOTE | 2022-10-02 02:07 | NUR ---
PT AWAKE IN BED WITH . FRESH WATER PROVIDED. URINAL EMPTIED. NO FURTHER NEEDS.
--- NOTE | 2022-10-02 04:51 | NUR ---
PT RESTING IN BED WITH EYES CLOSED. RESPIRATIONS EVEN. CALL LIGHT IN REACH.
--- NOTE | 2022-10-02 05:28 | NUR ---
PT RESTING WITH EYES CLOSED. AWAKENS EASILY. VS AND I&O OBTAINED. UP TO BR WITH MINIMAL SBA AND FWW TO VOID. GAIT STEADY. BACK TO BED, KEISHA WELL. REPORTS HEADACHE PAIN 11/12. DENIES PRN FOR PAIN WHEN OFFERED. NEURO CHECK UNCHANGED. AT BEDSIDE. NO NEEDS AT THIS TIME.
--- NOTE | 2022-10-02 06:53 | NUR ---
COVID SWAB COMPLETED. SENT TO LAB.
--- NOTE | 2022-10-02 07:31 | NUR ---
PT RESTING EYES CLOSED AT TIME OF SHIFT REPORT, IN BED WITH HIM. LEFT UNDISTURBED
--- NOTE | 2022-10-02 09:18 | NUR ---
PT TOLERATES 100% OF MORNING MEAL DENIES NEED OF MORE. RESTING IN BED WATCHING TV NO C/O NEVAREZ THIS SHIFT. REMAINS PRESENT WITH PT
--- NOTE | 2022-10-02 11:17 | NUR ---
PT C/O NEVAREZ FIRST TIME THIS SHIFT. TYLENOL AND ICE PACK GIVEN FOR 8/10 PAIN. O/T IN TO WORK WITH PT EARLIER. RESTING IN BED WATCHING TV NOW, PRESENT IN THE ROOM
--- NOTE | 2022-10-02 12:20 | NUR ---
Notified by she has pts insurance on the phone, Alexis. Spoke with Alexis and she states she can submit request by phone. She then asks for [facility] NPI, Reese NEVILLEI, diagnosis codes for the IP rehab. Let her know I don't have this infor, but I will call Ana M. Three phone calls to Ana M, her clinical safety manager, and nursing supervisor [employer] and they were able to reach. Three way conversation between, Ana M, Alexis, and myself. in the room listening to conversation. ICD 10, NPI for Dr Mccann and [facility] by Ana M. Phone conversation was 70 min attempting to receive auth. Ana M let Alexis know, they will not accept this pt until they have written auth from [employer]. We both discussed with Alexis there have been multiple attempts to contact their company. Per Ana M, she has attempted at least 3 times per day since last . She and I both discussed with Alexis we cannot hold for 2-3 hours for someone to answer. She cites the end of the year as why no one has been answering. Alexis states she will submit this request to their nurses REF [id number]. Conversation with Alexis REF number [id number]. She will request expedited auth, but is unsure if it will be viewed today. I requested she enter a note showing, pt has continued stay as they have been unreachable.
--- NOTE | 2022-10-02 12:25 | NUR ---
PT ALERT, ORIENTED AND VISITING WITH A FRIEND. IS BUSY WITH [employer]. GAVE BLESSING AND WILL FOLLOW
--- NOTE | 2022-10-02 12:27 | NUR ---
DISCHARGE PLANNING OFFICE STATES MARTHA FROM [facility] HAS SENT INSTRUCTED THE REQUEST FOR REHAB TO [facility]. SHE DID NOT HAVE TIME TO HOLD FOR F/U CALL THIS MORNING. I CALLED [facility] [phone] AND HELD FOR 47MINUTES. SPOKE AGAIN WITH ALICIA. CALL REF#[id number]. HE IS UNABLE TO LOCATE ANY REQUEST BUT STATES IT CAN TAKE 24 HOURS AND TO CHECK LATER TODAY OR TOMORROW. UPDATED DISCHARGE PLANNING OFFICE, SPOKE WITH RUTHIE JOHNSTON.
--- NOTE | 2022-10-02 14:00 | NUR ---
PT C/O LEFT FOOT FEELING PRESSURE ON THE SIDE NO CHANGE TO ASSESSMENT. LATER C/O SEEING HIS FELIX SHIRT APPEAR WET THEN NORMAL. NO CHANGE TO VISUAL FIELD EXAM. PT NOW C/O FEELING HE HAS A FINGER IN HIS RIGHT EYE, THIS IS A CHRONIC FEELING HE HAS HAD SINCE HIS LAST CVA PER HIS REPORT. CONCERNS REPORTED TO DR LIU WHO WILL SEE HIM THIS AFTERNOON.
--- NOTE | 2022-10-02 16:00 | NUR ---
pt working with p/t at this time
--- NOTE | 2022-10-02 18:14 | NUR ---
PT TOLERATES 100% OF EVENING MEAL DENIES DISCOMFORTS OR NEEDS OF. IS PRESENT IN THE ROOM BOTH ARE WATCHING TV
--- NOTE | 2022-10-02 19:39 | NUR ---
REPORT RECEIVED FROM DAY SHIFT RN. PT LYING IN BED ALERT AND ORIENTED. DENIES NEEDS. WHITE BOARD UPDATED. CALL LIGHT IN REACH.
--- NOTE | 2022-10-02 21:55 | NUR ---
EVENING ASSESSMENT COMPLETE. SCHEDULED MEDS ADMIN PER EMAR. PT REPORTS HEADACHE PAIN, ICE PACK PROVIDED PER REQUEST. PRN FOR N/V ADMIN FOR C/O ABD DISCOMFORT. NEURO ASSESSMENT COMPLETE. CRUDE OIL TREATER STRENGTH EQUAL BILAT. LEFT PERIPHERAL VISION DEFECIT UNCHANGED. AT BEDSIDE. NO FURTHER NEEDS AT THIS TIME. CALL LIGHT IN REACH.
--- NOTE | 2022-10-03 01:43 | NUR ---
PT RESTING IN BED WITH EYES CLOSED LYING ON LEFT SIDE. RESPIRATIONS EVEN. CALL LIGHT IN REACH. IN ROOM RESTING ON COUCH.
--- NOTE | 2022-10-03 03:19 | NUR ---
PT REPOSITIONED SELF TO RIGHT SIDE. RESTING WITH EYES CLOSED. RESPIRATIONS EVEN. CALL LIGHT IN REACH.
--- NOTE | 2022-10-03 06:02 | NUR ---
VS AND I&O OBTAINED. PT UP TO BR TO VOID. GAIT STEADY. BACK TO BED, KEISHA WELL. REPORTS HEADACHE PAIN 03/14. PRN FOR PAIN ADMIN AND ICE PACK PROVIDED. IN ROOM. NO FURTHER NEEDS.
--- NOTE | 2022-10-03 06:22 | NUR ---
CALL LIGHT ANSWERED. PT REPORTS NAUSEA AFTER SIPS OF WATER. PRN FOR N/V ADMIN PER EMAR.
--- NOTE | 2022-10-03 07:02 | NUR ---
Report from Kinjal Ruth RN. Patient lying in bed on back, respirations even and unlabored. Call light in reach, bed rails up. Allowed to rest at this time. at bedside.
--- NOTE | 2022-10-03 07:17 | NUR ---
pt resting in bed. present at bedside. pt co headache. pt provided warm compress. no needs at this time. call light within reach
--- NOTE | 2022-10-03 08:23 | NUR ---
ALERT AND ORIENTED IN BED. FRIEND AT BEDSIDE. AM MEDICATIONS ADMINISTERED. TAKES WITHOUT DIFFICULTY. ASSESSMENT COMPLETED. DENIES NEEDS AT THIS TIME.
--- NOTE | 2022-10-03 09:10 | NUR ---
Received a call from Ana M at [facility] rehab. They have received auth. Their clay artist would like to have the DC summary prior to pt discharging. They Let her know we are going into [address]. I will asking to update the dc summary completed by Dr. Gomez and we will fax when completed.
--- NOTE | 2022-10-03 10:04 | NUR ---
Patient will be DC'd to [facility] today per [facility] Ann/Case management. Patient and family aware.
--- NOTE | 2022-10-03 10:20 | NUR ---
Notified by Ana M, pt is accepted and they would like him there as soon as possible. Received Nurse to Nurse number for phone report. Gave Ana M the hospitalist phone number for Dr. Escobedo to call Dr. Noble for report. Dr. Noble pt is accepted and he will complete dc. He is on his way to the ER.
--- NOTE | 2022-10-03 10:21 | NUR ---
Ambulating in hallway with PT.
--- NOTE | 2022-10-03 10:30 | NUR ---
IN PT ROOM TO ASSIST PT W CALLING DOWN LUNCH. PER PT REQ PT WOULD LIKE SHOWER SET UP FOR WHEN HIS GETS BACK SHE CAN SHOWER HIM. SHOWER SET UP. NO FURTHER NEEDS. CALL LIGHT WITHIN REACH
--- NOTE | 2022-10-03 10:53 | NUR ---
RECORDS FAXED TO [facility]. WAITING FOR REVIEW AND OK TO [facility]. WILL DRIVE PATIENT TO [place].
--- NOTE | 2022-10-03 11:50 | NUR ---
Spoke with Dr. Noble in CCU and asked for verbal dc order. He states he will enter. Updated RN on the floor for dc. Spoke with , she states she needs to complete an ELLEN for pts disability insurance as they are asking multiple. Gave ELLEN to complete and she added the fax number for the company. Faxed to Antony in medical records.
--- NOTE | 2022-10-03 12:09 | NUR ---
Received a text from Ana M asking if pt has left at this time. UPdated they are leaving right now. I have asked them to go directly the [facility] and not make any stops. states understanding.
--- NOTE | 2022-10-03 12:24 | NUR ---
DC'D TO PRIVATE VEHICLE WITH STAFF, REPORT CALLED TO [facility] TO [facility] CHAVEZ.
--- NOTE | 2022-10-03 14:10 | NUR ---
PT IN BR, BRADY AND FAMILY PACKING UP PTS' BELONGINGS. PT HEADED TO [facility] FOLLOWING DC. GAVE ENCOURAGEMENT, WILL FOLLOW
== END 2022-10-03 12:15 | disposition home or self-care (01) | DRG 66 ==
LOC: ED 11:41 → MS 11:42
PROVIDERS: ADMIT Family Medicine; ATTEND Internal Medicine
DX: I63.511 Cerebral infarction due to unspecified occlusion or stenosis of right middle cerebral artery (principal); Z20.822 Contact with and (suspected) exposure to COVID-19; R47.81 Slurred speech; E87.6 Hypokalemia; I77.819 Aortic ectasia, unspecified site; R73.03 Prediabetes; R20.8 Other disturbances of skin sensation; G89.4 Chronic pain syndrome; E78.5 Hyperlipidemia, unspecified; H53.462 Homonymous bilateral field defects, left side; I10 Essential (primary) hypertension; Z53.1 Procedure and treatment not carried out because of patient's decision for reasons of belief and group pressure; Z90.49 Acquired absence of other specified parts of digestive tract; Z98.890 Other specified postprocedural states; Z88.8 Allergy status to other drugs, medicaments and biological substances; Z79.82 Long term (current) use of aspirin; Z79.899 Other long term (current) drug therapy
CPT/HCPCS: 36415; 70450; 70496; 70498; 70551; 71045; 80048; 80053; 80061; 83036; 83735; 84100; 84484; 85025; 85610; 85730; 86141; 87502; 92523; 92610; 93005; 93010; 93306; 97110; 97112; 97116; 97163; 97166; 97530; 97535; A9270; C9803; J1885; J2405; J3480; J7060; Q9967; U0003

== ENCOUNTER 2023-08-15 07:10 | Day surgery (SDC) | payer OTHER, BC ==
[2023-08-12 09:37] VITALS: BP 134/92
[~2023-08-15] VITALS: Ht 172.7 cm; Wt 102.3 kg
[~2023-08-15 07:10] MED LIST changes: +AMLODIPINE BESY10 MG PO; +APPLE CIDER VI600 MG PO; +CO Q-10100 MG PO; +DIPHENHYDRAMINE25 M1 PO; +HEALTHYLAX17 GM PO; +HYDROCHLOROTHIA25 MG PO; +LIPITOR40 MG PO; +LISINOPRIL30 MG PO; +METOPROLOL SUCC25 MG PO; +NEURONTIN300 MG PO; +OXYCODONE-ACET1 EAC1 PO; +STIMULANT LAXA1 EACH PO; +TOPROL XL50 MG PO; +TYLENOL325 MG PO
[2023-08-15 07:23] VITALS: BP 125/88
--- NOTE | 2023-08-15 07:32 | NUR ---
ROUNDS. PT GONE FOR PROCEDURE. NO VISIT. PROVIDED SILENT PRAYER.
--- NOTE | 2023-08-15 07:37 | NUR ---
AT BS. 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
--- NOTE | 2023-08-15 09:43 | NUR ---
08/15/23 0943 Serena Bassett 0923- PT ARRVIES TO PACU, LEFT LATERAL POSITION. O2 AT 6L PER MASK, SNORING RESPIRATIONS, NORMALLY WEARS CPAP, SATS 100%. LR INFUSING TO RH IV. PT NON REACTIVE AT THIS TIME. ALL MONITORS IN PLACE. ABD SOFT, NON DISTENDED.
[2023-08-15 10:36] VITALS: BP 130/82
--- NOTE | 2023-08-15 10:37 | NUR ---
RETURNED FROM PACU DRESSED NO IV. UNCOMFORTABLE WITH ABD ROUND AND TIGHT. HAVING ERUCTATIONS. WANTS TO WAIT TILL FEELS BETTER.
--- NOTE | 2023-08-15 11:21 | NUR ---
emesis approx 300mls yellowish fluid. wants to wait to see if this passes. requested 7up to sip. states nausea med had made him sicker but doesnt know name.
[2023-08-15 11:30] VITALS: BP 135/88
--- NOTE | 2023-08-15 12:07 | NUR ---
AMB HALLWAY. SAT IN BR HAS PASSED FLATUS. FEELS BETTER. HERE. STATES HES READY TO GO HOME. DCD PER WC WITH .
--- NOTE | 2023-08-16 09:21 | OR ---
[facility] [address] [place], [place] [address] Signed DATE OF OPERATION: 08/15/2023 SURGEON: Ivett Hung MD PREOPERATIVE DIAGNOSES: 1. Presumed family history of colon cancer. 2. Screening. POSTOPERATIVE DIAGNOSES: 1. 2 cm pedunculated polyp at 15 cm (snare, tattoo). 2. 4 mm and 6 mm polyps at 25 cm in sigmoid colon. 3. Moderate internal and external hemorrhoids. PROCEDURE: Colonoscopy with hot biopsy, snare polypectomy, and injection of tattoo. ESTIMATED BLOOD LOSS: None. INDICATIONS: Syed is a 52-year-old gentleman, asked to see me for his initial screening colonoscopy. He has no lower GI complaints. Apparently, there is a family history of colon cancer, but no one is able to tell me any more details than that. He did come to the office today with his mom because he has had two prior strokes. He is no longer able to drive. He is working towards disability. 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 Apparently, he had a patent foramen ovale that had undergo a patch. Nevertheless, he had a stroke not too long ago and so he now has a cardiac recorder that is going to be in place for four years. He told me the heart surgery was done back at age 44. He also had a hypercoagulable workup and that was negative. In the office, I had given him our brochure on colonoscopy. We reviewed that together. There is risk including, but not limited to gas bloating, crampy abdominal pain, bleeding, perforation requiring surgery, and missed diagnosis. We also reviewed the written instructions for a bowel prep line by line. He will hold his aspirin 3 days prior to the procedure. He will continue his other medications. He needs monitored anesthesia care given his history along with his inability to tolerate large swings in his blood pressure given his previous history of two strokes. We also decided to give him IV antibiotics because of the heart monitor as well as the patch in his heart. He had expressed understanding and wished to proceed. DESCRIPTION OF PROCEDURE: Electronically Signed By: IVETT HUNG MD 08/16/23 0921 PATIENT NAME: SYED GLEZ OPERATIVE REPORT DATE OF : 68 REPORT #: [id number] PHYSICIAN: IVETT HUNG MD PCP: ROSAURA HESS MD REPORT IS CONFIDENTIAL AND NOT TO BE RELEASED WITHOUT AUTHORIZATION [facility] [address] [place], [place] [address] Signed Seyd was taken into our endoscopy suite and placed in the left lateral decubitus position. He was given monitored anesthesia care with propofol infusion per our nurse seismograph computer. A digital rectal exam was performed. He did have bilateral moderate-sized external hemorrhoids. He had good sphincter tone. There were no masses. I could barely touch the bottom of his indurated prostate gland. The adult colonoscope had been introduced and advanced all around into the cecum under direct visualization of the camera. He has somewhat long redundant colon. It took a while and some abdominal compression and increased propofol infusion to get to the cecum itself. His prep was good. There was just a few areas of liquid stool that we suctioned out quite readily. The scope was then slowly withdrawn. We had taken pictures throughout for photodocumentation. We used our snare to remove the polyp at 115 cm that is probably in his transverse colon but we are not sure exactly. We therefore placed a tattoo at the base of that polyp. We used our basket to capture the polyp and bring it out for pathologic review. It is a good 2 cm in diameter. We then removed two small sessile polyps back at 25 cm with the help of hot biopsy forceps. We did not see any diverticulosis. Once in the rectum, the scope was then retroflexed and he does have minimal to moderate internal hemorrhoid tissue as well. After this, the gas was suctioned out and the colonoscope removed. Syed tolerated his procedure quite well. RECOMMENDATIONS: I will see Syed back in my office in 7 to 14 days to review his results. I suspect he will be on the five year plan in the future. Ivett Hung MD [facility] /[id number] cc: MD Rosaura Blackburn MD Copies: IVETT HUNG MD Electronically Signed By: IVETT HUNG MD 08/16/23 0921 PATIENT NAME: SYED GLEZ OPERATIVE REPORT DATE OF : 68 REPORT #: [id number] PHYSICIAN: IVETT HUNG MD PCP: ROSAURA HESS MD REPORT IS CONFIDENTIAL AND NOT TO BE RELEASED WITHOUT AUTHORIZATION [address] [address] Signed ROSAURA HESS MD ~ Electronically Signed By: IVETT HUNG MD 08/16/23 0921 PATIENT NAME: SYED GLEZ OPERATIVE REPORT DATE OF : 68 REPORT #: [id number] PHYSICIAN: IVETT HUNG MD PCP: ROSAURA HESS MD REPORT IS CONFIDENTIAL AND NOT TO BE RELEASED WITHOUT AUTHORIZATION
--- NOTE | 2023-08-19 17:13 | PATH ---
[facility] [address] [facility] [place] [address] Signed SPECIMEN(S): A COLON POLYP AT 25 CM SPECIMEN(S): B COLON POLYP AT 115 CM SPECIMEN SOURCE: A. COLON POLYP AT 25 CM B. COLON POLYP AT 115 CM CLINICAL HISTORY: Family h/o colon cancer. Screening. Int/ext hemorrhoids, polyps. FINAL PATHOLOGIC DIAGNOSIS: A. Colon polyp at 25 cm: - Hyperplastic polyps (two fragments). B. 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 JVR:clv MICROSCOPIC EXAMINATION: Histologic sections of all submitted blocks are examined by light microscopy. These findings, together with the gross examination, support the pathologic diagnosis. GROSS DESCRIPTION: A. The specimen, labeled and designated "Conn, colon polyp at 25 cm," is received in formalin and consists of two raymundo soft tissue fragments, ranging from 0.2 cm. Entirely submitted in (A1). B. The specimen, labeled and designated "Conn, colon polyp at 115 cm," is received in formalin and consists of one raymundo soft tissue fragment, 2.0 cm. The resection margin is inked and specimen is serially sectioned. Specimen is entirely submitted in (B1-B2). JS (under the direct supervision of a pathologist) The Gross Description was prepared using a voice recognition system. The report was reviewed for accuracy; however, sound-alike word errors, addition and/or deletions may occur. If there is any question about this report, please contact Client Services. PERFORMING LABORATORY: Technical component was performed by [facility], [address] [place] [id number] (CLIA# [id number]). Professional interpretation was performed by [facility], [address] [place] [id number] (CLIA#: [id number]). PATIENT NAME: SIMIN GLEZ PATHOLOGY DATE OF : 68 REPORT #: [id number] PHYSICIAN: ADITHYA PATHOLOGY PCP: ROSAURA HESS MD REPORT IS CONFIDENTIAL AND NOT TO BE RELEASED WITHOUT AUTHORIZATION [address] [place] [address] Signed Diagnostician: Rashard Mendez MD Pathologist Electronically Signed 08/19/2023 Copies: ~ PATIENT NAME: SIMIN GLEZ PATHOLOGY DATE OF : 68 REPORT #: [id number] PHYSICIAN: ADITHYA PATHOLOGY PCP: ROSAURA HESS MD REPORT IS CONFIDENTIAL AND NOT TO BE RELEASED WITHOUT AUTHORIZATION
== END 2023-08-15 11:50 | disposition home or self-care (01) ==
LOC: DS 07:10
PROVIDERS: ATTEND Colon & Rectal Surgery
PROC: 3E0H8KZ Introduction of Other Diagnostic Substance into Lower GI, Via Natural or Artificial Opening Endoscopic (ICD-10-PCS; 2023-08-15)
PROC: 0DBE8ZX Excision of Large Intestine, Via Natural or Artificial Opening Endoscopic, Diagnostic (ICD-10-PCS; principal; 2023-08-15 08:15)
DX: Z12.11 Encounter for screening for malignant neoplasm of colon (principal); D12.6 Benign neoplasm of colon, unspecified; K63.5 Polyp of colon; K64.8 Other hemorrhoids; K64.4 Residual hemorrhoidal skin tags; Q43.8 Other specified congenital malformations of intestine; I10 Essential (primary) hypertension; E78.5 Hyperlipidemia, unspecified; E66.9 Obesity, unspecified; Z68.35 Body mass index [BMI] 35.0-35.9, adult; Z86.73 Personal history of transient ischemic attack (TIA), and cerebral infarction without residual deficits; Z88.8 Allergy status to other drugs, medicaments and biological substances; Z79.899 Other long term (current) drug therapy
CPT/HCPCS: 00811; J0690; J2001; J2704; J7121

== ENCOUNTER 2024-03-26 15:57 | Emergency (ER) | payer BC ==
[~2024-03-26] VITALS: Ht 172.7 cm; Wt 98.2 kg
[2024-03-26] MEDS ORDERED: ASPIRIN 81 MG CHEW PO ONE (16:30)
[2024-03-26 16:33] LABS: BASOPHILS 0.3 % (0-2); EOSINOPHILS 2.1 % (0-6); HEMATOCRIT 40.8 % (35.0-50.0); HEMOGLOBIN 14.4 g/dL (12.0-18.0); MCH 31.1 (27-36); MCHC 35.4 g/dl (30-36); MONOCYTES 7.7 % (0-12); NEUTROPHILS 60.9 % (39-80); PLATELET COUNT 198 K/uL (140-440); RBC 4.63 M/ul (4.3-5.7); RDW 13.1 (10.5-15.0)
[2024-03-26 16:52] LABS: ALBUMIN 3.5 g/dL (3.4-5.0); ALBUMIN/GLOBULIN RATIO 1.09 (1.1-2.4); ANION GAP 15.1 (7-21); BILIRUBIN, TOTAL 0.4 ng/dL (0.2-1.0); BUN/CREATININE RATIO 15.38 (6.0-28.6); CALCIUM 8.6 mg/dL (8.5-10.1); CREATININE, SERUM 0.91 mg/dL (0.70-1.30); POTASSIUM 3.1 mmol/L (3.5-5.1); PROTEIN, TOTAL 6.7 g/dL (6.4-8.2)
[2024-03-26] MEDS ORDERED: POTASSIUM CITRATE 10 MEQ PO ONE (17:15)
[2024-03-26] MEDS ORDERED: POTASSIUM CHLORIDE 10 MEQ TABCR PO ONE (22:30)
[2024-03-26 23:10] VITALS: BP 147/102
--- NOTE | 2024-03-27 19:44 | EKG ---
[facility] [address] [facility] [place] [address] Signed Normal sinus rhythm Left axis deviation Abnormal ECG When compared with ECG of 18-JUL-2023 17:45, premature ventricular complexes are no longer present Confirmed by Alejandrina Youngblood MD ([id number]) on 03/27/2024 7:44:34 PM Electronically Signed By: ALEJANDRINA YOUNGBLOOD MD 03/27/241943 PATIENT NAME: SIMIN GLEZ Electrocardiogram DATE OF : 68 PHYSICIAN: ALEJANDRINA YOUNGBLOOD MD REPORT #: [id number] REPORT IS CONFIDENTIAL AND NOT TO BE RELEASED WITHOUT AUTHORIZATION
== END 2024-03-26 23:10 | disposition home or self-care (01) ==
LOC: ED 15:57
PROVIDERS: Emergency Medicine
DX: R07.89 Other chest pain (principal); I10 Essential (primary) hypertension; Z86.73 Personal history of transient ischemic attack (TIA), and cerebral infarction without residual deficits; Z79.82 Long term (current) use of aspirin; Z79.899 Other long term (current) drug therapy; Z88.8 Allergy status to other drugs, medicaments and biological substances
CPT/HCPCS: 36415; 71045; 80053; 83735; 84484; 85025; 93005; 93010; 99285-25; A9270